=== PATIENT | male | born 1995 | race Hispanic/Latino ===

== ENCOUNTER 2017-09-02 07:11 | Emergency (ER) | payer SELFPAY ==
[2017-09-02] MEDS ORDERED: DEXAMETHASONE 10 MG/ML VIAL ONE (08:22)
--- NOTE | 2017-09-02 09:13 | RAD REPORT ---
EXAM DESCRIPTION: Enrico Sauceda (2 Views)09/02/2017 8:17 am CLINICAL HISTORY: Cough COMPARISON: None FINDINGS: The lungs appear clear of acute infiltrate. The heart is normal size IMPRESSION: No acute abnormalities displayed
--- NOTE | 2017-09-02 09:29 | EDPHYS ---
Physician Documentation [facility] Emergency Department Name: Kimo Perea Jr Age: 22 yrs Sex: Male : 1995 Arrival Date: 09/02/2017 Time: 07:12 Bed 10 Private MD: ED Physician Hawk Bellamy HPI: 09/02 07:30 This 22 yrs old Male presents to ER via Ambulatory with complaints of jmm Headache, Sore Throat. 07:30 The patient or guardian reports cough. Onset: The symptoms/episode began/occurred jmm gradually, 1 day(s) ago. Modifying factors: The symptoms are alleviated by nothing. the symptoms are aggravated by nothing. Associated signs and symptoms: Pertinent positives: sore throat. This is a 22 year old male with no chronic medical conditions that presents to the ED with cough, sore throat beginning 1 day ago.. Denies sick contact. Denies fever, Denies abdominal pain. . Historical: - Allergies: 07:32 NKA; iw - Home Meds: 07:32 None [Active]; iw - PMHx: 07:32 None; iw - PSHx: 07:32 Appendectomy; iw - Immunization history:: Adult Immunizations not up to date. - Social history:: Smoking status: Patient uses tobacco products, denies chronic smoking, but will smoke occasionally. - Ebola Screening: : Patient negative for fever greater than or equal to 101.5 degrees Fahrenheit, and additional compatible Ebola Virus Disease symptoms Patient denies exposure to infectious person Patient denies travel to an Ebola-affected area in the 21 days before illness onset No symptoms or risks identified at this time. ROS: 07:32 Abdomen/GI: Negative for abdominal pain, nausea, vomiting, diarrhea, and constipation. jmm 07:32 Constitutional: Positive for malaise. 07:32 ENT: Positive for sore throat. 07:32 Respiratory: Positive for cough. 07:32 All other systems are negative. Exam: 07:32 Constitutional: This is a well developed, well nourished patient who is awake, alert, jmm and in no acute distress. Head/Face: atraumatic. Eyes: EOMI, no conjunctival erythema appreciated ENT: Moist Mucus Membranes Neck: Trachea midline, Supple Chest/axilla: Normal chest wall appearance and motion. Cardiovascular: Regular rate and rhythm. No edema appreciated Respiratory: Normal respirations, no respiratory distress appreciated Abdomen/GI: Non distended, soft Back: Normal ROM Skin: Warm, dry with normal turgor. Normal color with no rashes, no lesions, and no evidence of cellulitis. 07:32 Skin: General appearance color normal MS/ Extremity: Moves all extremities, no obvious deformities appreciated, no edema noted to the lower extremities 07:32 Neuro: Awake and alert, normal gait 07:32 Psych: Behavior is normal, Mood is normal, Patient is cooperative and pleasant 07:32 Respiratory: Normal respirations, no respiratory distress appreciated 07:32 ENT: TM's: are normal, Posterior pharynx: Uvula: midline, erythema, that is mild, exudate, is not appreciated, peritonsillar mass, is not appreciated. 07:32 Respiratory: the patient does not display signs of respiratory distress, Respirations: normal. 07:32 Skin: Appearance: Color: normal in color. 07:32 Neuro: Orientation: is normal, Mentation: is normal, Memory: is normal, Gait: is steady. 07:32 Psych: Behavior/mood is pleasant, cooperative. Vital Signs: 07:32 BP 127 / 85; Pulse 74; Resp 16 S; Temp 98.8(O); Pulse Ox 100% on R/A; Weight 72.57 kg; iw Height 5 ft. 9 in. (175.26 cm); Pain 6/10; 07:32 Body Mass Index 23.63 (72.57 kg, 175.26 cm) iw MDM: 07:34 Patient medically screened. [facility] 09:28 Data reviewed: vital signs, nurses notes, radiologic studies. [facility] 09:36 Counseling: I had a detailed discussion with the patient and/or guardian regarding: the [facility] historical points, exam findings, and any diagnostic results supporting the discharge/admit diagnosis, the presence of at least one elevated blood pressure reading (>120/80) during this emergency department visit, lab results, radiology results, the need for outpatient follow up, to return to the emergency department if symptoms worsen or persist or if there are any questions or concerns that arise at home. 09/02 07:44 Order name: Strep; Complete Time: 08:23 [facility] 09/02 08:22 Order name: Throat Culture [facility] 09/02 07:44 Order name: Chest Pa And Lat (2 Views) XRAY; Complete Time: 09:13 [facility] Administered Medications: 08:30 Drug: Dexamethasone 10 mg Route: IM; Site: left deltoid; iw Disposition: 14:59 Co-signature as Attending Physician, Hawk Bellamy MD I agree with the assessment and [facility] plan of care. Disposition: 09/02/17 09:28 Discharged to Home. Impression: Acute bronchitis, Acute pharyngitis. - Condition is Stable. - Discharge Instructions: Acute Bronchitis, Pharyngitis. - Prescriptions for Albuterol Sulfate 90 mcg/actuation - inhale 1-2 puff by INHALATION route every 4-6 hours; 1 Inhaler. - Medication Reconciliation Form, Thank You Letter, Antibiotic Education, Prescription Opioid Use, Work release form form. - Follow up: Private Physician; When: 2 - 3 days; Reason: Continuance of care. Signatures: Dispatcher [employer] EDHawk Suarez MD MD cha Mickail, Joel, PA PA jmm Williams, Irene, RN RN iw Corrections: (The following items were deleted from the chart) 09:36 09:28 09/02/2017 09:28 Discharged to Home. Impression: Acute bronchitis; Acute iw pharyngitis. Condition is Stable. Forms are Medication Reconciliation Form, Thank You Letter, Antibiotic Education, Prescription Opioid Use. Follow up: Private Physician; When: 2 - 3 days; Reason: Continuance of care. [facility] 12:40 12:29 Counseling: I had a detailed discussion with the patient and/or guardian estrella regarding: the historical points, exam findings, and any diagnostic results supporting the discharge/admit diagnosis, the presence of at least one elevated blood pressure reading (>120/80) during this emergency department visit, lab results, radiology results, the need for outpatient follow up, to return to the emergency department if symptoms worsen or persist or if there are any questions or concerns that arise at home, [facility] 12:45 12:29 Constitutional: This is a well developed, well nourished patient who is awake, [facility] alert, and in no acute distress. Head/Face: atraumatic. Eyes: EOMI, no conjunctival erythema appreciated ENT: Moist Mucus Membranes Neck: Trachea midline, Supple Chest/axilla: Normal chest wall appearance and motion. Cardiovascular: Regular rate and rhythm. No edema appreciated Respiratory: Normal respirations, no respiratory distress appreciated Abdomen/GI: Non distended, soft Back: Normal ROM Skin: Warm, dry with normal turgor. Normal color with no rashes, no lesions, and no evidence of cellulitis. [facility] 12: Skin: Appearance: Color: normal in color, [facility] 12: Skin: General appearance color normal MS/ Extremity: Moves all extremities, no [facility] obvious deformities appreciated, no edema noted to the lower extremities [facility] : Neuro: Orientation: is normal, Mentation: is normal, Memory: is normal, Gait: is [facility] steady, [facility] : Neuro: Awake and alert, normal gait [facility] 12: Psych: Behavior/mood is pleasant, cooperative, [facility] 12: Psych: Behavior is normal, Mood is normal, Patient is cooperative and pleasant [facility] 12: ENT: TM's: are normal, Posterior pharynx: Uvula: midline, erythema, that is mild, [facility] exudate, is not appreciated, peritonsillar mass, is not appreciated, [facility] : Respiratory: the patient does not display signs of respiratory distress, [facility] Respirations: normal, [facility] 12: Respiratory: Normal respirations, no respiratory distress appreciated [facility]
--- NOTE | 2017-09-02 09:29 | ER ---
Nurse's Notes [facility] Name: Kimo Perea Jr Age: 22 yrs Sex: Male : 1995 Arrival Date: 09/02/2017 Time: 07:12 Bed 10 Private MD: Diagnosis: Acute bronchitis;Acute pharyngitis Presentation: 09/02 07:31 Presenting complaint: Patient states: has had cough and pain in chest when he coughs iw since yesterday, denies fever, cough is non productive, also has sore throat. Transition of care: patient was not received from another setting of care. Onset of symptoms was September 01, 2017. Risk Assessment: Do you want to hurt yourself or someone else? Patient reports no desire to harm self or others. Initial Sepsis Screen: Does the patient meet any 2 criteria? No. Patient's initial sepsis screen is negative. Does the patient have a suspected source of infection? No. Patient's initial sepsis screen is negative. Care prior to arrival: None. 07:31 Method Of Arrival: Ambulatory iw 07:31 Acuity: MARTIN 4 iw Triage Assessment: 09:00 Pain: Pain currently is 3 out of 10 on a pain scale. Pain began Also complains of no iw other associated symptoms. 09:00 Headache History: Denies prior headaches. iw Historical: - Allergies: 07:32 NKA; iw - Home Meds: 07:32 None [Active]; iw - PMHx: 07:32 None; iw - PSHx: 07:32 Appendectomy; iw - Immunization history:: Adult Immunizations not up to date. - Social history:: Smoking status: Patient uses tobacco products, denies chronic smoking, but will smoke occasionally. - Ebola Screening: : Patient negative for fever greater than or equal to 101.5 degrees Fahrenheit, and additional compatible Ebola Virus Disease symptoms Patient denies exposure to infectious person Patient denies travel to an Ebola-affected area in the 21 days before illness onset No symptoms or risks identified at this time. Screenin:48 Abuse screen: Denies threats or abuse. Denies injuries from another. Nutritional iw screening: No deficits noted. Tuberculosis screening: No symptoms or risk factors identified. Fall Risk None identified. Assessment: 08:45 General: Appears in no apparent distress. Behavior is calm, cooperative. Pain: iw Complains of pain in throat. Neuro: Level of Consciousness is awake, alert, obeys commands, Oriented to person, place, time, situation. 08:45 Cardiovascular: Patient's skin is warm and dry. Respiratory: Reports cough that is iw non-productive, Airway is patent Respiratory effort is even, unlabored, Respiratory pattern is regular, symmetrical, Breath sounds are clear bilaterally. GI: Abdomen is non-distended. Derm: Skin is pink, warm \T\ dry. normal. Musculoskeletal: Range of motion: intact in all extremities. Vital Signs: 07:32 BP 127 / 85; Pulse 74; Resp 16 S; Temp 98.8(O); Pulse Ox 100% on R/A; Weight 72.57 kg; iw Height 5 ft. 9 in. (175.26 cm); Pain 6/10; 07:32 Body Mass Index 23.63 (72.57 kg, 175.26 cm) iw ED Course: 07:12 Patient arrived in ED. rg4 07:31 Estela Lira RN is Primary Nurse. iw 07:31 Carter Cerna PA is PHCP. [facility] 07:31 Hawk Bellamy MD is Attending Physician. [facility] 07:32 Triage completed. iw 07:32 Arm band placed on. iw 08:16 X-ray completed. Patient tolerated procedure well. Patient moved back from radiology. [facility] 08:17 Chest Pa And Lat (2 Views) XRAY In Process Unspecified. EDMS 08:45 Patient has correct armband on for positive identification. iw 09:35 No provider procedures requiring assistance completed. Patient did not have IV access iw during this emergency room visit. Administered Medications: 08:30 Drug: Dexamethasone 10 mg Route: IM; Site: left deltoid; iw Outcome: 09:28 Discharge ordered by . [facility] 09:35 Discharged to home ambulatory. iw 09:35 Condition: good 09:35 Discharge instructions given to patient, Instructed on discharge instructions, follow up and referral plans. medication usage, Demonstrated understanding of instructions, follow-up care, medications, Prescriptions given X 1. 09:36 Patient left the ED. iw Signatures: Dispatcher [employer] EDMS Carter Cerna PA PA Amber Gottlieb 1 Estela Lira RN RN iw Elysia Butler rg4
== END 2017-09-02 09:36 | disposition home or self-care (01) ==
LOC: ER 07:11
DX: J20.9 Acute bronchitis, unspecified (principal); F17.200 Nicotine dependence, unspecified, uncomplicated
CPT/HCPCS: 71046; 87070; 87081; 96372; 99283; J1100